=== PATIENT | male | born 1955 | race African-American/Black ===

== ENCOUNTER 2016-11-05 15:40 | Emergency (ER) | payer OTHER ==
[~2016-11-05] VITALS: Ht 167.6 cm; Wt 79.4 kg
[2016-11-05 16:20] VITALS: BP 164/88
--- NOTE | 2016-11-05 16:21 | Emergency Room Report ---
History of Present Illness General Chief Complaint: General Complaint Source: Patient Present Illness HPI The patient presents with tingling in the left side of his body. Started yesterday at 11 AM. It's gotten progressively worse from that period of time. He now notes that last 4 or 5 hours he's had difficulty with feeling in his left leg and left face. He also has a headache 8/10 on the left-hand side. There is no change in his vision. Being treated for high blood pressure and his medications were recently changed. He's not taking Rach. He was taken off losartan. He feels this might be related to his medicine change. His blood pressures been high at home but he has not recorded. The patient has stage V renal failure and is in the process of getting set up for possible dialysis. The patient denies any fever, chest pain, palpitations, dyspnea, rashes or dysuria. Allergies: Coded Allergies: No Known Allergies (Unverified , 11/05/16) Patient History Past Medical History: see triage record Social History Narrative with iram Reviewed Nursing Documentation: PMH: Agreed, PSxH: Agreed Nursing Documentation-PMH Past Medical History: No History, Except For Hx Hypertension: Yes Physical Exam Vital Signs Date Time Temp Pulse Resp B/P Pulse Ox O2 Delivery O2 Flow Rate FiO2 11/05/16 15:58 97.9 85 18 147/91 98 Room Air Sp02 EP Interpretation: reviewed, normal General Appearance: well appearing, no apparent distress, GCS 15 Head: normocephalic Eyes: bilateral eye PERRL, bilateral eye normal inspection ENT: moist mucus membranes Neck: supple Respiratory: lungs clear, normal breath sounds Cardiovascular #1: regular rate, rhythm Cardiovascular #2: 2+ radial (R) Gastrointestinal: normal inspection, normal bowel sounds, non tender, no mass, non-distended Musculoskeletal: back normal, gait/station normal, normal range of motion Neurologic: alert, oriented x3, band tier III-XII nml as tested, motor strength/tone normal, DTRs symmetric, sensory intact - subjective decrease L side, normal gait , speech normal, no Babinski, other - L cerebellar dysfunction - F/N and H/S Psychiatric: mood/affect normal Skin: normal inspection, warm/dry Medical Decision Making Diagnostic Impression: Primary Impression: Acute stroke Additional Impression: Renal insufficiency ER Course Patient has findings of cerebellar stroke. He's beyond the time period for TPA use of. However Hyperstat CT and labs will be obtained with EKG. His blood pressure is fairly well-controlled at the moment. Consideration for interventional radiology transfer is undertaken. CT with old lacunar infarct. Labs with CRF. CXR chronic changes. Discussed with Dr. Hernandez at [facility] for higher level versus Code Stroke. Agrees with no TPA but will take in transfer to higher level of care - outside window for Code Stroke. Patient neurologic exam unchanged. Repeat neuro prior to transfer. Still L cerebellar findings. Stable for transfer. Laboratory Tests Test 11/05/16 16:15 11/05/16 18:00 White Blood Count 4.1 K/UL (4.8-10.8) L Red Blood Count 3.61 M/UL (4.70-6.10) L Hemoglobin 10.6 G/DL (14.2-18.0) L Hematocrit 29.5 % (42.0-52.0) L Mean Corpuscular Volume 82 FL (80-99) Mean Corpuscular Hemoglobin 29.4 PG (27.0-31.0) Mean Corpuscular Hemoglobin Concent 35.9 G/DL (32.0-36.0) Red Cell Distribution Width 14.5 % (11.6-14.8) Platelet Count 174 K/UL (150-450) Mean Platelet Volume 4.5 FL (6.5-10.1) L Neutrophils (%) (Auto) 61.3 % (45.0-75.0) Lymphocytes (%) (Auto) 19.8 % (20.0-45.0) L Monocytes (%) (Auto) 7.1 % (1.0-10.0) Eosinophils (%) (Auto) 10.8 % (0.0-3.0) H Basophils (%) (Auto) 1.1 % (0.0-2.0) Prothrombin Time 9.7 SEC (9.30-11.50) Prothrombin Time INR 0.9 (0.9-1.1) PTT 25 SEC (23-33) Sodium Level 139 mEQ/L (135-145) Potassium Level 4.9 mEQ/L (3.4-4.9) Chloride Level 103 mEQ/L (98-107) Carbon Dioxide Level 22 mEQ/L (20-30) Anion Gap 14 (5-15) Blood Urea Nitrogen 62 mg/dL (7-23) H Creatinine 5.6 mg/dL (0.7-1.2) H Estimate Glomerular Filtration Rate 12.6 mL/min (>60) Glucose Level 152 mg/dL (74-106) H Calcium Level 8.5 mg/dL (8.6-10.2) L Total Bilirubin 0.4 mg/dL (0.0-1.2) Aspartate Amino Transferase (AST) 18 U/L (5-40) Alanine Aminotransferase (ALT) 12 U/L (3-41) Alkaline Phosphatase 70 U/L (40-129) Total Creatine Kinase 519 U/L (38-174) H Troponin I < 0.30 ng/mL (<=0.30) Pro-B-Type Natriuretic Peptide 638 pg/mL (0-125) H Total Protein 6.5 g/dL (6.6-8.7) L Albumin 4.1 g/dL (3.5-5.2) Globulin 2.4 g/dL Albumin/Globulin Ratio 1.7 (1.0-2.7) Urine Color Pale yellow Urine Appearance Clear Urine pH 6 (4.5-8.0) Urine Specific [place] 1.010 (1.005-1.035) Urine Protein 3+ (NEGATIVE) H Urine Glucose (UA) Negative (NEGATIVE) Urine Ketones Negative (NEGATIVE) Urine Occult Blood 3+ (NEGATIVE) H Urine Nitrite Negative (NEGATIVE) Urine Bilirubin Negative (NEGATIVE) Urine Urobilinogen Normal MG/DL (0.0-1.0) Urine Leukocyte Esterase Negative (NEGATIVE) Urine RBC 5-10 /HPF (0 - 0) H Urine WBC 0-2 /HPF (0 - 0) Urine Squamous Epithelial Cells None /LPF (NONE/OCC) Urine Bacteria Few /HPF (NONE) Urine Opiates Screen Negative (NEGATIVE) Urine Barbiturates Screen Negative (NEGATIVE) Phencyclidine (PCP) Screen Negative (NEGATIVE) Urine Amphetamines Screen Negative (NEGATIVE) Urine Benzodiazepines Screen Negative (NEGATIVE) Urine Cocaine Screen Negative (NEGATIVE) Urine Marijuana (THC) Screen Positive (NEGATIVE) H EKG Diagnostic Results Rate: normal Rhythm: NSR ST Segments: no acute changes Rhythm Strip Diag. Results EP Interpretation: yes Rhythm: NSR, no PVC's, no ectopy Chest X-Ray Diagnostic Results Chest X-Ray Diagnostic Results : Chest X-Ray Ordered: Yes # of Views/Limited/Complete: 1 View Indication: Other EP Interpretation: Yes Interpretation: no consolidation, no effusion, no pneumothorax Impression: No acute disease Interpreting ER Provider: Electronically signed by Shaun Aparicio MD CT/MRI/US Diagnostic Results CT/MRI/US Diagnostic Results : Imaging Test Ordered: CT head Impression old lacunar infarct left lentiform nucleus Last Vital Signs Date Time Temp Pulse Resp B/P Pulse Ox O2 Delivery O2 Flow Rate FiO2 11/05/16 19:34 70 13 155/87 100 Room Air 11/05/16 18:36 97.3 Status: unchanged Disposition: ER [facility] - [facility] - higher level Condition: Serious Shaun Aparicio M.D. Nov 05, 2016 16:21
[2016-11-05 16:32] LABS: BASOPHILS % (AUTO) 1.1 % (0.0-2.0); EOSINOPHILS % (AUTO) 10.8 % (0.0-3.0); LYMPHOCYTES % (AUTO) 19.8 % (20.0-45.0); MEAN CORPUSCULAR HEMOGLOBIN 29.4 PG (27.0-31.0); MEAN CORPUSCULAR HGB CONC 35.9 G/DL (32.0-36.0); MEAN CORPUSCULAR VOLUME 82 FL (80-99); MEAN PLATELET VOLUME 4.5 FL (6.5-10.1); MONOCYTES % (AUTO) 7.1 % (1.0-10.0); NEUTROPHILS % (AUTO) 61.3 % (45.0-75.0); PLATELET COUNT 174 K/UL (150-450); RED BLOOD COUNT 3.61 M/UL (4.70-6.10); RED CELL DISTRIBUTION WIDTH 14.5 % (11.6-14.8); WHITE BLOOD COUNT 4.1 K/UL (4.8-10.8)
[2016-11-05] MEDS ORDERED: ADALAT20 MG ORAL (16:34)
[2016-11-05] MEDS ORDERED: CARVEDILOL12.5 MG ORAL (16:34)
[2016-11-05 16:36] LABS: INR 0.9 (0.9-1.1); PROTHROMBIN TIME 9.7 SEC (9.30-11.50)
[2016-11-05 16:44] LABS: TROPONIN I < 0.30 ng/mL (<=0.30)
[2016-11-05 16:45] LABS: ALANINE AMINOTRANSFERASE 12 U/L (3-41); ALBUMIN/GLOBULIN RATIO 1.7 (1.0-2.7); ANION GAP 14 (5-15); ASPARTATE AMINO TRANSFERASE 18 U/L (5-40); CALCIUM 8.5 mg/dL (8.6-10.2); CARBON DIOXIDE 22 mEQ/L (20-30); CHLORIDE 103 mEQ/L (98-107); CREATININE 5.6 mg/dL (0.7-1.2); HEMOLYSIS 5; POTASSIUM 4.9 mEQ/L (3.4-4.9); SODIUM 139 mEQ/L (135-145); TOTAL PROTEIN 6.5 g/dL (6.6-8.7)
[2016-11-05 16:52] VITALS: BP 151/87
[2016-11-05 17:13] LABS: GLOMERULAR FILTRATION RATE 12.6 mL/min (>60)
[2016-11-05 18:22] LABS: APPEARANCE,URINE CLEAR; KETONES,URINE NEGATIVE (NEGATIVE); LEUKOCYTE ESTERASE ,URINE NEGATIVE (NEGATIVE); NITRITE,URINE NEGATIVE (NEGATIVE); PH,URINE 6 (4.5-8.0); PROTEIN,URINE 3+ (NEGATIVE); UROBILINOGEN,URINE NORMAL MG/DL (0.0-1.0)
[2016-11-05 18:36] VITALS: BP 156/86
[2016-11-05 18:38] LABS: BACTERIA,URINE FEW /HPF; WBC,URINE 0-2 /HPF (0 - 0)
[2016-11-05 19:34] VITALS: BP 155/87
--- NOTE | 2016-11-06 10:14 | Diagnostic Imaging Report ---
Indication: Headache Technique: Contiguous 5 mm thick transaxial imaging of the head obtained in a Siemens Sensation [address] scanner. Soft tissue and bone windows generated. Total Dose length Product (DLP): [address] Dose Index Volume (CTDIvol): 70.38 mGy Comparison: none Findings: There is a small slightly linear cystic focus in the left frontoparietal craniotomy just anterior to the anterior horn of the left lateral ventricle. There is a small cystic focus in the left putamen also likely a small vessel infarct. Otherwise, the size and configuration of the cortical sulci, basal cisterns, and ventricles are within normal limits for age. There is no mass effect, midline shift, or edema identified. There is no evidence of acute hemorrhage or abnormal intra-axial or extra-axial fluid collections. The bones and soft tissues are unremarkable. Impression: No mass effect, edema or acute bleed. Old small vessel infarcts involving left frontal coronal radiata and putamen. [facility] has communicated the preliminary results to the Emergency Department. Their findings are largely concordant with this report. The CT scanner at [facility] is accredited by the [employer] and the scans are performed using dose optimization techniques as appropriate to a performed exam including Automatic Exposure control.
--- NOTE | 2016-11-06 10:42 | Diagnostic Imaging Report ---
Indication: Dyspnea Comparison: None A single view chest radiograph was obtained. Findings: Cardiomediastinal appearance is within normal limits for age. Pulmonary vascularity is appropriate. The diaphragmatic contour is smooth and costophrenic angles are sharp. No pleural effusions are identified. The bones are unremarkable. Impression: No acute findings
--- NOTE | 2016-11-06 17:51 | Cardiology Report ---
APPROVED REPORT EKG Measurement Heart [id number] Normal sinus rhythm Left anterior fascicular block Nonspecific T wave abnormality Abnormal ECG
== END 2016-11-05 20:20 | disposition short-term general hospital (02) ==
LOC: EMR 17:00
DX: I63.9 Cerebral infarction, unspecified (principal); N28.9 Disorder of kidney and ureter, unspecified; I10 Essential (primary) hypertension
CPT/HCPCS: 36415; 70450; 71010; 80053; 80300; 81003; 82550; 82962; 83880; 84484; 85025; 85610; 85730; 93005

== ENCOUNTER 2016-12-14 05:13 | Emergency (ER) | payer MEDICAID, OTHER ==
[~2016-12-14] VITALS: Ht 167.6 cm; Wt 81.6 kg
[~2016-12-14 05:13] MED LIST: ADALAT20 MG ORAL; CARVEDILOL12.5 MG ORAL
[2016-12-14] MEDS ORDERED: Acetaminophen 500mg (ES) tab ORAL ONE (05:45)
[2016-12-14] MEDS ORDERED: PREDNISONE20 MG ORAL (05:48)
[2016-12-14] MEDS ORDERED: ACETAMINOPHEN500 M3 ORAL (05:48)
[2016-12-14 06:20] VITALS: BP 149/87
--- NOTE | 2016-12-14 10:06 | Diagnostic Imaging Report ---
Indication: PAIN Technique: 3 views left foot Comparison: none Findings: No acute fractures. No dislocations. There is hammertoe deformity of the third and fifth digits. The joint spaces are preserved Impression: No acute process
--- NOTE | 2016-12-31 12:52 | Emergency Room Report ---
History of Present Illness General Chief Complaint: Pain Source: Patient Present Illness HPI 61 yo M with hx of gout p/w L foot pain x 2 days. denies hx of trauma. has still been able to ambulate. states he has had this similar pain in the past. no other complaints. Allergies: Coded Allergies: No Known Allergies (Unverified , 11/05/16) Patient History Past Medical History: see triage record Past Surgical History: none Pertinent Family History: none Reviewed Nursing Documentation: PMH: Agreed, PSxH: Agreed Nursing Documentation-PMH Hx Hypertension: Yes Review of Systems All Other Systems: negative except mentioned in HPI Physical Exam Vital Signs Date Time Temp Pulse Resp B/P (MAP) Pulse Ox O2 Delivery O2 Flow Rate FiO2 12/14/16 05:15 97.9 119 18 154/91 97 Room Air Sp02 EP Interpretation: reviewed, normal General Appearance: normal inspection, well appearing, no apparent distress, alert, GCS 15, non-toxic Head: normocephalic, atraumatic Eyes: bilateral eye normal inspection, bilateral eye PERRL, bilateral eye EOMI ENT: normal ENT inspection, normal pharynx, normal voice, moist mucus membranes Neck: normal inspection, full range of motion, supple Respiratory: normal inspection, lungs clear, normal breath sounds, no respiratory distress, no retraction, no wheezing, speaking full sentences, chest symmetrical Cardiovascular #1: normal inspection, regular rate, rhythm, no edema, normal capillary refill Cardiovascular #2: 2+ radial (R), 2+ radial (L) Gastrointestinal: normal inspection, non tender, soft, non-distended, no guarding Genitourinary: no CVA tenderness Musculoskeletal: other - L foot with mild erythema/edema along first big toe. from, able to bear weight. no gross abnormalities Neurologic: normal inspection, alert, oriented x3, responsive, motor strength/ tone normal, sensory intact, normal gait, speech normal Psychiatric: normal inspection, judgement/insight normal, memory normal Skin: normal inspection, normal color, no rash, warm/dry, well hydrated, normal turgor Medical Decision Making Diagnostic Impression: Primary Impression: Gout attack ER Course 61 yo M hx of fout p/w L foot pain x 2 days DDX: gout attack vs. contusion vs. fx Plan: XR, pain control Disposition: DCed to home with pain meds and prednisone, instructed to fu with PMD in 5 days Procedure: XRAY Foot Complete L Indication: PAIN Technique: 3 views left foot Comparison: none Findings: No acute fractures. No dislocations. There is hammertoe deformity of the third and fifth digits. The joint spaces are preserved Impression: No acute process Electronically signed by Keri Chinchilla MD Last Vital Signs Date Time Temp Pulse Resp B/P (MAP) Pulse Ox O2 Delivery O2 Flow Rate FiO2 12/14/16 06:20 97.9 67 18 149/87 99 Room Air Disposition: HOME, SELF-CARE Condition: Improved Scripts Prednisone* (PREDNISONE*) 20 Mg Tablet 40 MG ORAL DAILY, #5 TAB Prov: Keri Chinchilla M.D. 12/14/16 Acetaminophen* (ACETAMINOPHEN EXTRA STRENGTH*) 500 Mg Tablet 500 MG ORAL Q8H Y for Fever/Headache/Mild Pain, #30 TAB Prov: Keri Chinchilla M.D. 12/14/16 Referrals: NON PHYSICIAN (PCP) Patient Instructions: Gout, [id number] Keri Chinchilla M.D. Dec 31, 2016 12:52
== END 2016-12-14 06:21 | disposition home or self-care (01) ==
LOC: EMR 05:52
DX: M10.9 Gout, unspecified (principal); I10 Essential (primary) hypertension; M20.42 Other hammer toe(s) (acquired), left foot
CPT/HCPCS: 99284